=== PATIENT | female | born 1990 | race Caucasian/White ===

== ENCOUNTER → 2017-03-04 | Outpatient (CLI) | payer OTHER | LOC: FIMAGING 12:18 | PROVIDERS: ATTEND Advanced Practice Midwife | DX: O09.892 Supervision of other high risk pregnancies, second trimester (principal); O36.5921 Maternal care for other known or suspected poor fetal growth, second trimester, fetus 1; Z3A.20 20 weeks gestation of pregnancy ==

== ENCOUNTER → 2017-05-11 | Outpatient (CLI) | payer OTHER | LOC: FIMAGING 14:23 | PROVIDERS: ATTEND Advanced Practice Midwife | DX: Z34.93 Encounter for supervision of normal pregnancy, unspecified, third trimester (principal); Z3A.29 29 weeks gestation of pregnancy; Z87.59 Personal history of other complications of pregnancy, childbirth and the puerperium ==

== ENCOUNTER → 2017-05-27 | Outpatient (CLI) | payer OTHER | LOC: FIMAGING 13:45 | PROVIDERS: ATTEND Advanced Practice Midwife ==

== ENCOUNTER → 2017-06-10 | Outpatient (CLI) | payer OTHER | LOC: FIMAGING 09:19 | PROVIDERS: ATTEND Advanced Practice Midwife | DX: Z34.93 Encounter for supervision of normal pregnancy, unspecified, third trimester (principal); Z3A.34 34 weeks gestation of pregnancy ==

== ENCOUNTER → 2017-06-15 | Outpatient (CLI) | payer OTHER | LOC: FIMAGING 14:03 | PROVIDERS: ATTEND Advanced Practice Midwife | DX: O36.5931 Maternal care for other known or suspected poor fetal growth, third trimester, fetus 1 (principal); Z3A.34 34 weeks gestation of pregnancy ==

== ENCOUNTER → 2017-06-22 | Outpatient (CLI) | payer OTHER | LOC: FIMAGING 09:22 | PROVIDERS: ATTEND Obstetrics & Gynecology | DX: O36.5931 Maternal care for other known or suspected poor fetal growth, third trimester, fetus 1 (principal); Z3A.35 35 weeks gestation of pregnancy ==

== ENCOUNTER → 2017-06-29 | Outpatient (CLI) | payer OTHER | LOC: FIMAGING 09:30 | PROVIDERS: ATTEND Obstetrics & Gynecology | DX: Z36 Encounter for antenatal screening of mother (principal) ==

== ENCOUNTER 2017-06-30 17:30 | Inpatient (IN) | payer OTHER ==
[2017-06-30] MEDS ORDERED: TERBUTALINE SULFATE 1 MG/ML VIAL IV PRN (19:36)
[2017-06-30] MEDS ORDERED: EPSOM SALT 454 GM TP PRN (19:36)
[2017-06-30] MEDS ORDERED: LR 1,000 ML IV PRN (19:36)
[2017-06-30] MEDS ORDERED: OXYTOCIN/RINGERS LACTATE 1,000 ML IV PRN (19:36)
[2017-06-30] MEDS ORDERED: OLIVE OIL 118 ML BTL MISC PRN (19:36)
[2017-06-30] MEDS ORDERED: LR 500 ML IV PRN (20:33)
--- NOTE | 2017-06-30 20:53 | GHP ---
[f rep st] HISTORY AND PHYSICAL DATE OF ADMISSION: 06/30/2017 ADMITTING DIAGNOSIS: Intrauterine at 36-6/7 weeks' gestation for a scheduled induction of labor at 37 weeks gestation secondary to intrauterine growth restriction and elevated Doppler's. HISTORY OF PRESENT ILLNESS: The patient is a 27-year-old, 4, para 3-0-0-3, with a last mens trual period of 10/15/2016, and EDC of 07/22/2017, which was confirmed by a 1st trimester ultrasound . She had good care at the [facility] until 34 weeks gestation, when she transfe rred to [facility] secondary to the diagnosis of intrauterine growth restriction. She had an ultrasound with MFM that revealed estimated weight of the baby to be less than 4th percent ile. She has had elevated Doppler's, as high as 3.7 to 3.8 and has had normal AVA. She has been mo nitored weekly for Doppler's and AVA and every 3 weeks for growth. Baby remains between the 2nd and the 4th percentile, and the recommendation is to proceed with induction of labor at 37 weeks, which is tomorrow (07/01/2017). Patient was admitted overnight for monitoring and had a Diamond catheter p laced for cervical ripening. PAST OBSTETRICAL HISTORY: In December 2012, she had a viable female who was also an induction of labor for intrauterine growth restriction. That baby weighed 4 pounds 15 ounces at 37 weeks. She had a hemorrhage after that delivery. In August 2014, she had a viable male, 7 pounds 8 ounces, spontaneous labor and did have hemorrhage. In November 2015, she had an 8 pound 2 ounce baby boy vaginal delivery with a hemorrhage. All these were treated with medication, and she did not require a blood transfusion. This is her 4t h . PAST GYNECOLOGICAL HISTORY: No significant problems. She has normal menstrual triad. No history o f any abnormal Pap's. She has only used control pills in the past. PAST MEDICAL HISTORY: None significant. PAST SURGICAL HISTORY: She had adenoidectomy in, 2005 and wisdom teeth extraction. She was in an [facility] at age 7 and had a fractured cheek and a fractured nose. ALLERGIES: Sulfa causes hives. Also a questionable penicillin allergy as a child. MEDS: Include vitamins. LABORATORY DATA: She is B positive, antibody negative, RPR nonreactive, rubella immune, hepatitis n egative, hepatitis C negative, HIV negative. Pap normal. Gonorrhea and chlamydia normal. 1-hour G TT 82. GBS is negative. REVIEW OF SYSTEMS: Today is negative. Patient has had good movement. No significant contrac tions or other complaints. SOCIAL HISTORY: She is . She lives with her and her 3 children. 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 She denies tobacco, alcohol, and drug use. FAMILY HISTORY: Mother has hypothyroidism. Paternal grandmother of an [place], maternal of le ukemia at age 46. Maternal grandmother of a stroke. Father has substance abuse issues. OBJECTIVE: VITAL SIGNS: Today she is afebrile, vital signs are stable. heart tones are 120s and reactive with moderate variability, category 1. She is not nickolas. PELVIC: Cervix is 3 cm, 80%, -2. I placed a Diamond catheter for cervical ripening ASSESSMENT AND PLAN: A 27-year-old 4, para 3-0-0-3, who will be 37 weeks tomorrow, for kuldeep ction of labor secondary to intrauterine growth restriction and elevated Doppler's. A Diamond cathete r placed for ripening. Patient will have Pitocin started in the morning. /[id number]/MODL
[2017-06-30] MEDS ORDERED: OXYTOCIN/RINGERS LACTATE 500 ML IV SCH (21:00)
[2017-07-01] MEDS ORDERED: OLIVE OIL 118 ML BTL ONE (05:49)
[2017-07-01] MEDS ORDERED: LIDOCAINE 1% 300 MG/30 ML SDV ONE (05:49)
[2017-07-01] MEDS ORDERED: TERBUTALINE SULFATE 1 MG/ML VIAL ONE (05:50)
[2017-07-01] MEDS ORDERED: MISOPROSTOL 200 MCG TAB ONE (05:50)
[2017-07-01] MEDS ORDERED: OXYTOCIN 10 UNIT/ML VIAL ONE (05:50)
[2017-07-01] MEDS ORDERED: AMMONIA AROMATIC 1 EACH AMP IH ONE (05:50)
[2017-07-01 07:14] LABS: % IMMATURE GRANULYOCYTES 0.3 % (0.0-1.1); ABSOLUTE IMMATURE GRANULOCYTES 0.04 10^3/uL (0.00-0.10); ADD DIFF? NO; ADD MORPH? NO; ADD SCAN? NO; ATYPICAL LYMPHOCYTE FLAG 10 (0-99); FRAGMENT RBC FLAG 0 (0-99); HEMATOCRIT 39.5 % (38.0-47.0); HEMOGLOBIN 13.7 g/dL (12.6-16.3); LEFT SHIFT FLG 0 (0-99); LIPEMIA HEMOLYSIS FLAG 90 (0-99); MEAN CELL HEMOGLOBIN 30.2 pg (27.9-34.1); MEAN CELL HEMOGLOBIN CONCENTR. 34.7 g/dL (32.4-36.7); MEAN CELL VOLUME 87.2 fL (81.5-99.8); MEAN PLATELET VOLUME 10.1 fL (8.7-11.7); PLATELET CLUMPS FLAG 0 (0-99); PLATELET COUNT 216 10^3/uL (150-400); RED BLOOD CELL COUNT 4.53 10^6/uL (4.18-5.33); RED CELL DISTRIBUTION WIDTH 13.2 % (11.5-15.2)
[2017-07-01] MEDS ORDERED: METHYLERGONOVINE MAL 0.2 MG/ML INJ ONE (07:36)
[2017-07-01] MEDS ORDERED: HEMABATE 250 MCG/1 ML AMP IM ONE (07:36)
[2017-07-01] MEDS: IBUPROFEN 600 MG TAB PO PRN ×2 (13:11→19:34)
[2017-07-01] MEDS ORDERED: IBUPROFEN 600 MG TAB PO PRN (13:15)
[2017-07-01] MEDS ORDERED: DOCUSATE SODIUM 100 MG CAP PO PRN (13:15)
[2017-07-01] MEDS ORDERED: HYDROCODONE/APAP 5/325 TAB PO PRN (13:15)
[2017-07-01] MEDS ORDERED: SIMETHICONE 80 MG TAB CHEW PO PRN (13:15)
[2017-07-01] MEDS ORDERED: HYDROCORTISONE 0.5% CREAM TP PRN (13:15)
--- NOTE | 2017-07-01 13:20 | OBDEL ---
Info Type: Vaginal GBS+: No Indications for Delivery: Growth Restriction w/Abnormal Doppler studies (IOL) Vaginal Delivery - Labor and Delivery Onset of Contractions Date: 07/01/17 Onset of Contractions Time: 10:30 Onset of Contractions Type: Induced Rupture of Membranes Date: 07/01/17 Rupture of Membranes Time: 12:30 Rupture of Membranes Type: Spontaneous Amniotic Fluid Color: Clear Dilation Complete Date: 07/01/17 Dilation Complete Time: 12:45 Placenta Delivery Date: 07/01/17 Placenta Delivery Time: 13:00 Total Hours of Labor: 2 Vaginal Sponge Count Correct: Yes Vaginal Needle Count Correct: Yes Vaginal Sweep Performed: Yes EBL: 750 cc Delivery Events: Post Hemorrhage (Pt was given 1000mcg AL after delivery as well as Pitocin x 2. Uterus firm. Bleeding normal. Pt then had another gush with brisk bleeding and clots, about 250 cc 20 min after delivery. Methergine IM given x 1. Vaginal sweep performed. Uterus massaged and firm below umbilicus. ) - Medications Labor Augmentation/Induction Methods Used: Pitocin, Diamond Bulb Labor Augmentation/Induction Indication: IUGR (with elevated dopplers) [place] [facility] [place] Delivery Date: 07/01/17 Delivery Time: 12:50 CYNDIE: 07/23/17 Gestational Age: 36 week(s) and 6 day(s) Sex of Infant: Male Score (1 Min): 8 Score (5 Min): 9 ICD10 Worksheet Patient Problems: Problems Problem Status Onset (spontaneous vaginal delivery) Acute PPH ( hemorrhage) Acute IUGR (intrauterine growth restriction) Acute
[2017-07-01] MEDS ORDERED: MISOPROSTOL 200 MCG TAB PR ONE (16:09)
[2017-07-01] MEDS ORDERED: METHYLERGONOVINE MAL 0.2 MG/ML INJ IM ONE (16:09)
[2017-07-02] MEDS: IBUPROFEN 600 MG TAB PO PRN ×4 (01:48→20:29)
[2017-07-02 04:58] LABS: HEMATOCRIT 35.3 % (38.0-47.0); HEMOGLOBIN 12.3 g/dL (12.6-16.3)
--- NOTE | 2017-07-02 13:34 | OBPP ---
Progress Note Assessment/Plan: Assessment: ppd#1 s/p s/p iol for iugr transfer to [facility] at 34 weeks breast feeding Plan: routine post care discharge tomorrow due to sga 07/02/17 13:30 Subjective: patient is doing well. pain is well controlled. normal lochia. denies headache and changes in vision. breast feeding is going well. denies headache and changes in vision. would like to go home today but baby is not discharged due to being sga at 37 weeks. will go home tomorrow Objective: 07/02/17 04:45 Patient ABO/Rh B POSITIVE 07/01/17 06:45 Temp Pulse Resp BP Pulse Ox 37.6 C 83 16 123/79 H 96 07/01/17 20:00 07/01/17 20:00 07/01/17 20:00 07/01/17 20:00 07/01/17 20:00 Uterine Tone: Firm Physical Exam - Physical Exam General Appearance: WD/WN, alert, no apparent distress Respiratory: chest non-tender, lungs clear, normal breath sounds Cardiac/Chest: normal peripheral pulses, regular rate, rhythm Abdomen: normal bowel sounds, non-tender, soft Extremities: normal range of motion, non-tender, normal inspection, normal capillary refill Skin: normal color, warm/dry Neuro/Psych: no motor/sensory deficits, alert, normal mood/affect, oriented x 3
[2017-07-02] MEDS: IRON POLYSAC/IRON HEME 28 MG TAB PO SCH ×2 (18:25→20:29)
[2017-07-02 20:24] VITALS: RESP 16
[2017-07-03] MEDS: IBUPROFEN 600 MG TAB PO PRN ×2 (02:32→12:39)
[2017-07-03 08:26] VITALS: BP 114/76; PULSE 74; TEMP 97.9; O2SAT 95
--- NOTE | 2017-07-03 12:16 | OBPP ---
Progress Note Assessment/Plan: Assessment:pain well managed voiding without difficulty pericare perineum approximated nipples intact scant rubra lochia Plan:discharge to home with instructions fu 4 and 6 weeks, pain management, pelvic rest, exercise, rest, pericare, depression, bleeding patterns, ss of infections, exercise, denies questions 07/03/17 12:14 Subjective: Denies pain, well. Questions about iron and anemia, verbalized understanding of iron qd untill pp visit. Objective: 07/02/17 04:45 Patient ABO/Rh B POSITIVE 07/01/17 06:45 Temp Pulse Resp BP Pulse Ox 36.6 C 74 16 114/76 95 07/03/17 08:25 07/03/17 08:25 07/03/17 08:25 07/03/17 08:25 07/03/17 08:25 Uterine Position/Fundal Height: At Umbilicus Uterine Tone: Firm Physical Exam - Physical Exam General Appearance: WD/WN, alert, no apparent distress Abdomen: other (ff@u/ scant rubra lochia) Extremities: Keren's sign (negative bilaterally) DTR- Lower Extremities: Knee (R): 1+, Knee (L): 1+ (no clonus) Skin: normal color, warm/dry Neuro/Psych: no motor/sensory deficits, alert, normal mood/affect, oriented x 3
[2017-07-03] MEDS: IRON POLYSAC/IRON HEME 28 MG TAB PO SCH (12:39)
== END 2017-07-03 14:00 | disposition home or self-care (01) | DRG 774 ==
LOC: FLD 18:20 → FOB 07-01 16:01
PROVIDERS: ADMIT Obstetrics & Gynecology; ATTEND Obstetrics & Gynecology
PROC: 3E033VJ Introduction of Other Hormone into Peripheral Vein, Percutaneous Approach (ICD-10-PCS; 2017-06-30)
PROC: 10E0XZZ Delivery of Products of Conception, External Approach (ICD-10-PCS; principal; 2017-07-01)
DX: O72.1 Other immediate postpartum hemorrhage (principal); O36.5930 Maternal care for other known or suspected poor fetal growth, third trimester, not applicable or unspecified; O28.3 Abnormal ultrasonic finding on antenatal screening of mother; O69.89X0 Labor and delivery complicated by other cord complications, not applicable or unspecified; Z67.20 Type B blood, Rh positive; Z37.0 Single live birth; Z3A.37 37 weeks gestation of pregnancy
CPT/HCPCS: J2210; J2590; J3105